=== PATIENT | male | born 1985 | race African-American/Black ===

== ENCOUNTER 2018-08-28 13:44 | Emergency (ER) | payer SELFPAY ==
[2018-08-28] MEDS ORDERED: Dexamethasone 4 MG TAB ONE (14:25)
== END 2018-08-28 15:11 | disposition home or self-care (01) ==
LOC: ERS 13:44
DX: J02.9 Acute pharyngitis, unspecified (principal); F17.210 Nicotine dependence, cigarettes, uncomplicated; Z71.6 Tobacco abuse counseling
CPT/HCPCS: 87081; 87430; 99406; J8540